=== PATIENT | female | born 1960 | race African-American/Black ===

== ENCOUNTER 2025-06-11 08:08 | Emergency (ER) | payer OTHER, SELFPAY ==
[2025-06-11] MEDS ORDERED: dilTIAZem 25 MG/5 ML VIAL ONE (08:37)
[2025-06-11 08:45] LABS: #Lymphocytes 5.0 thou/uL (1.20-3.40); #Monocytes 0.6 thou/uL (0.11-0.59); #Neutrophils 2.4 thou/uL (1.40-6.50); %Basophils 0.8 % (0.0-1.0); %Eosinophils 2.1 % (0.0-10.0); %Lymphocytes 60.8 % (21.0-51.0); %Monocytes 6.9 % (0.0-10.0); %Neutrophils 29.4 % (42.0-75.0); Hematocrit 44.1 % (36.0-47.0); Hemoglobin 14.6 g/dL (12.0-16.0); Manual Diff?? NO; Mean Corpuscular Hemoglobin 28.7 pg (27.0-31.0); Mean Corpuscular Volume 86.6 fl (78.0-98.0); Platelet Count 284 10x3/uL (130-400); Red Blood Cell (RBC) Count 5.10 mill/uL (4.20-5.40); White Blood Cell (WBC) Count 8.3 10x3/uL (4.8-10.8)
[2025-06-11 08:46] LABS: #Basophils 0.1 thou/uL (0.0-0.2); #Eosinophils 0.2 thou/uL (0.0-0.7)
[2025-06-11] MEDS ORDERED: Aspirin Chewable 81 MG TAB ONE (08:47)
[2025-06-11 08:50] LABS: INR-International Normal Ratio 1.0; Prothrombin Time 13.2 sec (12.0-14.7)
[2025-06-11 08:51] LABS: PTT 25.2 sec (22.9-36.1)
[2025-06-11 08:58] LABS: ALT (SGPT) 16 U/L (Less than 34); AST (SGOT) 31 U/L (11-34); Albumin 4.1 g/dL (3.1-4.5); Alkaline Phosphatase 62 U/L (40-110); Anion Gap 20 mmol/L (10-20); BUN (Urea Nitrogen) 17 mg/dL (9.8-20.1); Bilirubin, Total 0.3 mg/dL (0.3-1.2); Calc. Creatinine Clearance 0 mL/min (70-130); Calcium 9.8 mg/dL (7.8-10.44); Carbon Dioxide 25 mmol/L (23-31); Chloride 103 mmol/L (98-107); Globulin 3.6 g/dL (2.4-3.5); Glucose 161 mg/dL (80-115); Potassium 4.0 mmol/L (3.5-5.1); Sodium 144 mmol/L (136-145)
[2025-06-11 09:05] LABS: Troponin I Less than 0.010 ng/mL (< 0.028)
== END 2025-06-11 10:08 | disposition short-term general hospital (02) ==
LOC: NAV ERS 08:08
DX: I48.91 Unspecified atrial fibrillation (principal); E11.9 Type 2 diabetes mellitus without complications; I10 Essential (primary) hypertension; Z79.84 Long term (current) use of oral hypoglycemic drugs; Z79.82 Long term (current) use of aspirin; Z79.899 Other long term (current) drug therapy
CPT/HCPCS: 71045; 80053; 83880; 84443; 84484; 85025; 85610; 85730; 93005; 94760; 96374; J7030